=== PATIENT | female | born 1985 | race Two or more races ===

== ENCOUNTER 2024-05-28 20:35 | Emergency (ER) | payer OTHER ==
[~2024-05-28] VITALS: Ht 160 cm; Wt 83.2 kg
[2024-05-28 20:54] VITALS: BP 169/106; PULSE 100; RESP 16; O2SAT 98
[2024-05-28] MEDS ORDERED: ACET500T58 PO (21:55)
== END 2024-05-28 22:15 | disposition home or self-care (01) ==
LOC: ER 20:35
DX: S39.012A Strain of muscle, fascia and tendon of lower back, initial encounter (principal); S20.219A Contusion of unspecified front wall of thorax, initial encounter; V89.2XXA Person injured in unspecified motor-vehicle accident, traffic, initial encounter; Y93.89 Activity, other specified; Y92.89 Other specified places as the place of occurrence of the external cause; Y99.8 Other external cause status

== ENCOUNTER 2024-08-14 14:00 | Emergency (ER) | payer OTHER ==
[~2024-08-14] VITALS: Ht 160 cm; Wt 77.4 kg
[~2024-08-14 14:00] MED LIST: ACET500T58 PO
--- NOTE | 2024-08-14 14:49 | ED.PDOC ---
History of Present Illness(SKN HPI Comments A 39 YEAR OLD FEMALE PRESENTS TO THE ED WITH CHIEF COMPLAINT OF THUMB WOUND. PATIENT REPORTS THAT SHE HAD AN AREA OF SWELLING, REDNESS, AND PAIN TO HER LEFT THUMB 4 DAYS AGO. PATIENT RELAYS THAT SHE POPPED THE SWOLLEN REGION WITH A NEEDLE 2 DAYS AGO AND THE AREA HAD DRAINED, HOWEVER, IT HAS NOW BECOME MORE PAIN AND SWELLING. PATIENT DENIES INJURY, FEVER, CHILLS, NUMBNESS, OR DISCHARGE. NO OTHER SYMPTOMS REPORTED AT THIS TIME OF CARE. Chief Complaint: Wound Check Time Seen by MD: 14:43 Primary Care Provider: UNKNOWN History of Present Illness: Nurses Notes, Medications, Allergies Allergies: Coded Allergies: NO KNOWN ALLERGIES (Unverified , 05/28/24) Home Meds Active Scripts Ibuprofen (Ibuprofen) 800 Mg Tab, 1 TAB PO TID, #24 TAB Prov:IRENE MILLER 08/14/24 Cephalexin Monohydrate (Cephalexin) 500 Mg Tab, 1 TAB PO QID, #28 TAB Prov:IRENE MILLER 08/14/24 Acetaminophen (Acetaminophen) 500 Mg Tab, 500 MG PO Q4HPRN, #30 TAB 0 Refills Prov:JULIANO SANABRIA 05/28/24 Information Source: Patient Mode of Arrival: Ambulatory Severity: Moderate Timing: Hours Duration: Since onset Prehospital treatment: None Location: Hand Mechanism: Preceding Wound Object: Needle Condition of Object: Clean Retained Foreign Body: No Wound Type: Abscess Immunization Status of Animal: NA Tetanus: Unknown History of: None Associated Signs and Symptoms: None Past Medical History PAST MEDICAL HISTORY: Denies Surgical History: Denies all surgeries MOTION DESIGNER History: No Pertinent MOTION DESIGNER History Family History Family History: Reviewed,noncontributory to illness, Unknown Social History Smoker: Non-Smoker Alcohol: Denies ETOH Use Drugs: Denies Drug Use Lives In: Home Constitutional: denies: chills, diaphoresis, fatigue, fever, malaise, sweats, weakness, others EENTM: denies: blurred vision, double vision, ear bleeding, ear discharge, ear drainage, ear pain, ear ringing, eye pain, eye redness, hearing loss, mouth pain, mouth swelling, nasal discharge, nose bleeding, nose congestion, nose pain, photophobia, tearing, throat pain, throat swelling, voice changes, others Respiratory: denies: cough, hemoptysis, orthopnea, SOB at rest, shortness of breath, SOB with excertion, stridor, wheezing, others Cardiovascular: denies: chest pain, dizzy spells, diaphoresis, Dyspnea on exertion, edema, irregular heart beat, left arm pain, lightheadedness, palpitations, PND, syncope, others Gastrointestinal: denies: abdomen distended, abdominal pain, blood streaked bowels, constipated, diarrhea, dysphagia, difficulty swallowing, hematemesis, melena, nausea, poor appetite, poor fluid intake, rectal bleeding, rectal pain, vomiting, others Genitourinary: denies: abnormal vagina bleeding, burning, dyspareunia, dysuria, flank pain, frequency, hematuria, incontinence, pain, , vagina discharge, urgency, others Neurological: denies: dizziness, fainting, headache, left sided numbness, left sided weakness, numbness, paresthesia, pre-existing deficit, right sided numbness, right sided weakness, seizure, speech problems, tingling, tremors, weakness, others Musculoskeletal: denies: back pain, gout, joint pain, joint swelling, muscle pain, muscle stiffness, neck pain, others Integumetry: reports: wounds (LEFT THUMB WOUND WITH REDNESS); denies: bruises, change in color, change in hair/nails, dryness, laceration, lesions, lumps, rash, others Allergic/Immunocompromised: denies: Difficulty Healing, Frequent Infections, Hives, Itching, others Hematologic/Lymphatic: denies: anemia, blood clots, easy bleeding, easy bruising, swollen glands, others Endocrine: denies: excessive hunger, excessive sweating, excessive thirst, excessive urination, flushing, intolerance to cold, intolerance to heat, unexplained weight gain, unexplained weight loss, others Psychiatric: denies: anxiety, bipolar disorder, depression, hopeless, panic disorder, schizophrenia, sleepless, suicidal, others All Other Systems: Reviewed and Negative Physical Exam General Appearance: No Apparent Distress, Normal HEENT: Normal ENT Inspection, PERRL/EOMI, Pharynx Normal Neck: Full Range of Motion, Non-Tender, Normal, Normal Inspection Respiratory: Chest Non-Tender, Lungs Clear, No Accessory Muscle Use, No Respiratory Distress, Normal Breath Sounds Cardiovascular: No Edema, No JVD, No Murmur, No Gallop, Normal Peripheral Pulses, Regular Rate/Rhythm Breast Exam: Deferred Gastrointestinal: No Organomegaly, Non Tender, No Pulsatile Mass, Normal Bowel Sounds, Soft Genitalia: Deferred Pelvic: Deferred Rectal: Deferred Extremities: Decreased range of motion (SLIGHTLY DUE TO THE PAIN ), No calf tenderness, Normal capillary refill, No pedal edema, Swelling (AND REDNESS ON LEFT THUMB, +PARONYCHIA. ), Tender (REDNESS AND MILD SWELLING ON LEFT THUMB, NO OPEN WOUND SEEN. ) Musculoskeletal : Apperance: Normal Neurologic: Alert, citrix administrator II-XII nml as Tested, No Motor Deficits, Normal Affect, Normal Mood, No Sensory Deficits Cerebellar Function: Normal Reflexes: Normal Skin: Dry, Warm, Wounds (LOCALIZED REDNESS, SWELLING AND TENDERNESS ON LEFT THUMB, PARONYCHIA. ) Peripheral Pulses: 2+ carotid (R), 2+ carotid (L), 2+ Radial (R), 2+ Radial (L) Lymphatic: No Adenopathy Was a procedure done? Was a procedure done?: Yes Sedation Sedation?: No Incision and Drainage Incision and Drainage: Other (PARONYCHIA OF LEFT THUMB) Location LEFT THUMB Anesthetic: Lidocaine Preparation: Betadine, Saline Incision and Wound: Pus, Blood, Amount, Irrigated Informed consent obtained: No Risks/benefits/alt described: Yes Differential Diagnosis (INTG) Differential Diagnosis: Abscess Abscess: Felon, Other (PARONYCHIA OF LEFT THUMB ) X-Ray, Labs, Meds, VS Vital Signs Date Time Temp Pulse Resp B/P (MAP) Pulse Ox O2 Delivery O2 Flow Rate FiO2 08/14/24 15:23 94 18 100 Room Air 08/14/24 15:23 98.5 94 18 161/100 (120) 100 98.5 08/14/24 14:26 98.5 94 18 161/100 (120) 100 X-Ray, Labs, Meds, VS Comment EXTERNAL MEDICAL RECORDS REVIEWED: 05/28/24 FOR CHEST WALL PAIN INDEPENDENT HISTORIANS: [NONE] SOCIAL DETERMINANTS OF HEALTH: [NONE] LABS ORDERED: NONE REVIEWED AND INTERPRETED RESULTS: NONE IMAGING ORDERED: NONE TREATMENTS ORDERED: ROCEPHIN 1G PROCEDURES PERFORMED: NONE CRITICAL CARE TIME: NONE I HAVE DISCUSSED THE PATIENT WITH THE ATTENDING PHYSICIAN DR. RICHARD AND HE AGREES WITH THE PATIENT'S PLAN OF CARE AND DISPOSITION. GIVEN THE HISTORY AND PRESENT ILLNESS OF THE PATIENT, AFTER REVIEWING LABS, IMAGING, AND COURSE OF TREATMENT ADMINISTERED DURING THEIR ED VISIT, THERE IS LOW SUSPICION FOR RED FLAG FINDINGS. BASED ON HISTORY OF PRESENT ILLNESS, AND PHYSICAL EXAM, PATIENT WILL BE DISCHARGED HOME. DISCUSSED PLAN FOR DISCHARGE HOME WITH RX. MEDICATION WARNINGS GIVEN. SHARED DECISION MAKING: DISCUSSED WITH PATIENT THAT THEIR WORKUP WAS NORMAL. PATIENT INSTRUCTED TO FOLLOW UP WITH PRIMARY CARE PROVIDER IN 1-2 DAYS FOR RE- EVALUATION OF SYMPTOMS. PATIENT VERBALIZES UNDERSTANDING TO RETURN TO ED FOR NEW OR WORSENING SYMPTOMS OR IF FOLLOW UP WITH PCP CANNOT BE OBTAINED. PATIENT FEELS COMFORTABLE GOING HOME AT THIS TIME. ALL QUESTIONS ADDRESSED AT TIME OF DISCHARGE. Time of 1ST Reevaluation: 15:44 Reevaluation 1ST: Improved Patient Education/Counseling: Diagnosis, Treatment, Need For Follow Up Family Education/Counseling: Diagnosis, Treatment, No Family Present Medical Screening: No EMC Exist At This Time Departure 1 Departure Time of Disposition: 15:44 Impression: Primary Impression: Acute paronychia of left thumb Disposition: 01 HOME / SELF CARE / HOMELESS Condition: Stable Additional Instructions: FOLLOW-UP WITH PCP IN 1 TO 2 DAYS. TAKE MEDICATIONS PRESCRIBED. RETURN TO ED FOR ANY NEW OR WORSENING SYMPTOMS. e-Prescriptions Ibuprofen (Ibuprofen) 800 Mg Tab 1 TAB PO TID, #24 TAB Prov: IRENE MILLER 08/14/24 Cephalexin Monohydrate (Cephalexin) 500 Mg Tab 1 TAB PO QID, #28 TAB Prov: IRENE MILLER 08/14/24 Discharged With: Self Critical Care Note Critical Care Time?: No Stability Stability form required: No Heart Score Heart Score: Heart Score Response (Comments) Value History N/A 0 EKG N/A 0 Age N/A 0 Risk Factors N/A 0 Troponin N/A 0 Total 0 I personally scribed for IRENE MILLER ([email or web address]) on 08/14/24 at 14:49. Electronically submitted by Dario Leblanc ([email or web address]). I personally scribed for IRENE MILLER ([email or web address]) on 08/14/24 at 15:19. Electronically submitted by Dario Leblanc ([email or web address]). IRENE MILLER Aug 14, 2024 14:49
[2024-08-14 15:23] VITALS: BP 161/100; PULSE 94; RESP 18; TEMP 98.5; O2SAT 100
[2024-08-14] MEDS ORDERED: CEPH500T PO (15:43)
[2024-08-14] MEDS ORDERED: IBUP-1456 PO (15:43)
== END 2024-08-14 15:50 | disposition home or self-care (01) ==
LOC: ER 14:00
DX: L03.012 Cellulitis of left finger (principal); Z79.1 Long term (current) use of non-steroidal anti-inflammatories (NSAID); Z79.899 Other long term (current) drug therapy
CPT/HCPCS: 10060